=== PATIENT | female | born 1955 | race Caucasian/White ===

== ENCOUNTER → 2020-07-21 | Outpatient (CLI) | payer OTHER ==
[~2020-07-21] MED LIST: AUGMENTIN 875875 MG PO; IRON325 PO; LISINOPRIL20 MG PO; METFORMIN HCL500 MG PO; MULTI-VITAMIN1 EAC5 PO; NORCO 5-325 TA1 EACH PO; PRILOSEC 20 MG20 MG PO; SENOKOT-S1 TA1 PO; SUPER B COMPLE150 MG PO; VITAMIN B COMP1 EACH PO; VITAMINC500 PO; ZESTRIL40 MG PO
== END ==
LOC: SJCVCIMAG 07-14 10:26
PROVIDERS: ATTEND Internal Medicine
DX: I49.3 Ventricular premature depolarization (principal); R00.0 Tachycardia, unspecified; R94.31 Abnormal electrocardiogram [ECG] [EKG]; R07.2 Precordial pain; R06.00 Dyspnea, unspecified; E11.9 Type 2 diabetes mellitus without complications; E78.5 Hyperlipidemia, unspecified; I10 Essential (primary) hypertension; Z79.82 Long term (current) use of aspirin; Z79.899 Other long term (current) drug therapy